=== PATIENT | female | born 1985 | race Caucasian/White ===

== ENCOUNTER 2017-06-08 16:13 | Emergency (ER) | payer OTHER ==
[~2017-06-08] VITALS: Ht 162.6 cm; Wt 167.8 kg
[~2017-06-08 16:13] MED LIST: ADDERALL XR 1010 MG; ALBUTEROL INHAL17 GM IH; AMOXICILLIN875 MG PO; AZITHROMYCIN 2250 MG PO; BACTRIM DS TAB1 EACH PO; CHLORPROMAZINE100 MG; CLONAZEPAM 0.50.5 M1 PO; KEFLEX500 MG PO; LAMICTAL100 MG; LAMICTAL100 MG PO; LORTABELXR PO; NAPROSYN250 MG PO; PAXIL10 MG PO; PROMETHAZINE-D120 ML PO; PROVENTIL17 G1; PROZAC20 MG; PROZAC20 MG PO; PROZAC40 MG; ROBINUL PO; ROBINUL0.2 MG/1 M PO; TOPAMAX 100 MG100 MG; TOPAMAX 25 MG T25 M1; TOPAMAX 25 MG T25 M1 PO; TRAZODONE HCL100 MG; TRAZODONE HCL100 MG PO; VENTOLIN HFA INH8 GM IH; YASMIN 28 TABL1 EACH; YASMIN 28 TABL1 EACH PO; [UNRECOGNIZED DRUG - OTHER] PO; [UNRECOGNIZED DRUG - OTHER] PO
[2017-06-08] MEDS ORDERED: VYVANSE40 MG PO (16:33)
[2017-06-08] MEDS ORDERED: CHLORPROMAZINE50 M2 PO ×2 (16:33→16:34)
[2017-06-08] MEDS ORDERED: REQUIP1 MG PO (16:34)
[2017-06-08] MEDS ORDERED: PROZAC20 MG PO (16:34)
[2017-06-08] MEDS ORDERED: PRAZOSIN HCL2 MG PO (16:35)
[2017-06-08] MEDS ORDERED: ZANAFLEX4 MG PO (16:35)
[2017-06-08] MEDS ORDERED: XARELTO20 MG PO (16:35)
[2017-06-08 18:10] VITALS: BP 148/90
== END 2017-06-08 18:11 | disposition home or self-care (01) ==
LOC: M.ERS 16:13
DX: M25.562 Pain in left knee (principal); F31.9 Bipolar disorder, unspecified; F43.10 Post-traumatic stress disorder, unspecified; F90.9 Attention-deficit hyperactivity disorder, unspecified type; F41.9 Anxiety disorder, unspecified; F17.210 Nicotine dependence, cigarettes, uncomplicated

== ENCOUNTER 2018-02-04 19:20 | Emergency (ER) | payer OTHER ==
[~2018-02-04] VITALS: Ht 162.6 cm; Wt 149.7 kg
[~2018-02-04 19:20] MED LIST changes: +CHLORPROMAZINE50 M2 PO; +PRAZOSIN HCL2 MG PO; +REQUIP1 MG PO; +VYVANSE40 MG PO; +XARELTO20 MG PO; +ZANAFLEX4 MG PO
[2018-02-04 20:43] LABS: ABSOLUTE BASOPHILS 0.1 thou/uL (0.0-0.2); ABSOLUTE EOSINOPHILS 0.1 thou/uL (0.0-0.7); ABSOLUTE LYMPHOCYTES 2.6 thou/uL (0.8-5.3); ABSOLUTE MONOCYTES 0.9 thou/uL (0.0-1.2); ABSOLUTE NEUTROPHILS 8.6 thou/uL (1.6-8.1); BASOPHILS 0.6 %; EOSINOPHILS 0.9 %; HEMATOCRIT 39.8 % (37.0-47.0); HEMOGLOBIN 12.9 gm/dL (12.0-15.0); MCH 25.5 pg (26.0-34.0); MCHC 32.3 g/dL (28.0-37.0); MCV 78.7 fL (80.0-100.0); MONOCYTES 7.2 %; MPV 8.6 fl. (7.2-11.1); NUCLEATED RBCS 0 /100WBC; PLATELET COUNT* 289 thou/uL (150-400); POLYS 70.3 %; RBC 5.06 mil/uL (4.20-5.00); RDW-CV 16.1 % (10.5-14.5); WBC 12.2 thou/uL (4.0-11.0)
[2018-02-04 20:56] LABS: CALCIUM 8.8 mg/dL (8.5-10.1); CREATININE 0.7 mg/dL (0.6-1.3); POTASSIUM 3.6 mmol/L (3.5-5.1)
[2018-02-04 21:00] LABS: ALBUMIN 3.6 g/dL (3.4-5.0); TOTAL BILIRUBIN 0.2 mg/dL (<0.1-1.0); TOTAL PROTEIN 7.4 g/dL (6.4-8.2)
[2018-02-04 22:47] LABS: URINE BILIRUBIN NEGATIVE (Negative); URINE BLOOD NEGATIVE (Negative); URINE CLARITY CLEAR; URINE COLOR YELLOW; URINE GLUCOSE-RANDOM NEGATIVE (Negative); URINE KETONES NEGATIVE (Negative); URINE LEUKOCYTES-REFLEX NEGATIVE (Negative); URINE NITRITE-REFLEX NEGATIVE (Negative); URINE PROTEIN NEGATIVE (Negative); URINE UROBILINOGEN 0.2 E.U./dl (0.2-1.0)
[2018-02-04 22:55] LABS: AMP/METHAMP POSITIVE (Negative); BARBITURATES Negative (Negative); BENZODIAZEPINES Negative (Negative); COCAINE Negative (Negative); METHADONE Negative (Negative); OPIATES Negative (Negative); PCP Negative (Negative); THC Negative (Negative)
[2018-02-05] MEDS ORDERED: PHENERGAN12.5 M2 RECTAL (00:13)
[2018-02-05] MEDS ORDERED: ZOFRAN ODT4 MG PO (00:13)
[2018-02-05] MEDS ORDERED: CARAFATE 1 GM TA1 GM PO (00:13)
[2018-02-05] MEDS ORDERED: HYDROCODONE-ACE15 ML PO (00:14)
[2018-02-05 00:27] VITALS: BP 139/79
--- NOTE | 2018-02-05 16:14 | EKG ---
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 : 1985 Requested By: Maryam Patten Order Number: [id number] MD: Patrick Gant Measurements Intervals [place] Rate: 104 P: 47 IA: 158 QRS: 240 QRSD: 111 T: 21 QT: 364 QTc: 479 Interpretive Statements Sinus tachycardia Left anterior fascicular block Possible right ventricular hypertrophy Borderline prolonged QT interval Compared to ECG 06/10/2008 14:02:34 Left anterior fascicular block now present Right superior axis no longer present Electronically Signed On 02-05-2018 16:13:47 CDT by Patrick Gant [email or web address] <ELECTRONICALLY SIGNED> By: Patrick Gant MD, FACC 02/05/18 1613 36 36 Patrick Gant MD, [facility] /EPI
== END 2018-02-05 00:28 | disposition home or self-care (01) ==
LOC: M.ERS 19:20
PROVIDERS: Personal Emergency Response Attendant
DX: K29.70 Gastritis, unspecified, without bleeding (principal); J45.909 Unspecified asthma, uncomplicated; F17.210 Nicotine dependence, cigarettes, uncomplicated; Z98.84 Bariatric surgery status

== ENCOUNTER 2018-08-14 11:52 | Emergency (ER) | payer OTHER ==
[~2018-08-14] VITALS: Ht 160 cm; Wt 127.0 kg
[~2018-08-14 11:52] MED LIST changes: +CARAFATE 1 GM TA1 GM PO; +HYDROCODONE-ACE15 ML PO; +PHENERGAN12.5 M2 RECTAL; +ZOFRAN ODT4 MG PO
[2018-08-14] MEDS ORDERED: SPIRONOLACTONE25 MG PO (12:03)
[2018-08-14 13:03] LABS: ABSOLUTE BASOPHILS 0.1 thou/uL (0.0-0.2); ABSOLUTE EOSINOPHILS 0.2 thou/uL (0.0-0.7); ABSOLUTE LYMPHOCYTES 2.3 thou/uL (0.8-5.3); ABSOLUTE MONOCYTES 0.7 thou/uL (0.0-1.2); ABSOLUTE NEUTROPHILS 7.5 thou/uL (1.6-8.1); BASOPHILS 0.5 %; EOSINOPHILS 1.8 %; HEMATOCRIT 38.5 % (37.0-47.0); LYMPHOCYTES 21.4 %; MCH 27.2 pg (26.0-34.0); MCHC 33.8 g/dL (28.0-37.0); MCV 80.6 fL (80.0-100.0); MONOCYTES 6.2 %; MPV 8.3 fl. (7.2-11.1); NUCLEATED RBCS 0 /100WBC; PLATELET COUNT* 267 thou/uL (150-400); POLYS 70.1 %; RBC 4.78 mil/uL (4.20-5.00); WBC 10.7 thou/uL (4.0-11.0)
[2018-08-14 13:14] LABS: PROTIME 10.7 Seconds (9.20-11.50)
[2018-08-14 13:21] LABS: ALBUMIN 3.4 g/dL (3.4-5.0); ALKALINE PHOSPHATASE 73 U/L (46-116); ANION GAP 10 mmol/L (7-16); BUN 7 mg/dL (7-18); CALCIUM 8.8 mg/dL (8.5-10.1); CHLORIDE 105 mmol/L (98-107); CO2 26 mmol/L (21-32); CREATININE 0.7 mg/dL (0.6-1.3); GLUCOSE 90 mg/dL (70-99); LIPASE 45 U/L (73-393); POTASSIUM 3.9 mmol/L (3.5-5.1); SGOT 13 U/L (15-37); SGPT 25 U/L (30-65); SODIUM 141 mmol/L (136-145); TOTAL BILIRUBIN 0.4 mg/dL (<0.1-1.0); TOTAL PROTEIN 7.3 g/dL (6.4-8.2); TROPONIN-I LEVEL <0.06 ng/mL (<0.06)
--- NOTE | 2018-08-14 15:57 | EKG ---
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: : 1985 Requested By: Maryam Patten Order Number: [id number] MD: Duane Canas Measurements Intervals [place] Rate: 83 P: 12 HI: 157 QRS: 263 QRSD: 110 T: 31 QT: 405 QTc: 476 Interpretive Statements Sinus rhythm Left anterior fascicular block Possible right ventricular hypertrophy Borderline prolonged QT interval Compared to ECG 02/04/2018 19:37:39 Sinus tachycardia no longer present Electronically Signed On 08-14-2018 15:57:03 CDT by Duane Canas [email or web address] <ELECTRONICALLY SIGNED> By: Duane Canas MD, [facility] 08/14/18 1557 1157 1157 Duane Canas MD, [facility] /EPI
--- NOTE | 2018-08-14 16:04 | 2DMMODE ---
[place] [address] 2 D/M-MODE ECHOCARDIOGRAM Name: ANTHONY ULLOA [id number] Admission: 08/14/18 Attend Phys: Discharge: Date of : 85 Date of Service: 08/14/18 1603 Report #: [id number] THIS REPORT FOR: //name// APPROVED REPORT Study performed: 08/14/2018 14:40:07 EXAM: Comprehensive 2D, Doppler, and color-flow Echocardiogram Patient Location: In-Patient Room #: ER Status: routine BSA: 2.23 HR: 75 bpm BP: 130/59 mmHg Rhythm: NSR Other Information Study Quality: Good Indications Murmur Chest Pain 2D Dimensions IVSd: 9.57 (7-11mm) LVOT Diam: 19.21 (18-24mm) LVDd: 43.41 mm PWd: 9.01 (7-11mm) Ascending Ao: 28.98 (22-36mm) LVDs: 28.15 (25-40mm) Aortic Root: 27.53 mm Volumes Left Atrial Volume (Systole) LA ESV Index: 19.90 mL/m2 Aortic Valve AoV Peak Bar.: 1.81 m/s AO Peak Gr.: 13.09 mmHg LVOT Max P.91 mmHg AO Mean Gr.: 7.32 mmHg LVOT Mean P.81 mmHg LVOT Max V: 1.31 m/s AO V2 VTI: 33.16 cm LVOT Mean V: 0.92 m/s MOOKIE (VTI): 2.21 cm2 LVOT V1 VTI: 25.24 cm Mitral Valve E/A Ratio: 1.39 MV Decel. Time: 242.42 [place] [address] 2 D/M-MODE ECHOCARDIOGRAM Name: ANTHONY ULLOA [facility] [id number] Admission: 08/14/18 Attend Phys: Discharge: Date of : 85 Date of Service: 08/14/18 1603 Report #: [id number] MV E Max Bar.: 1.03 m/s MV PHT: 70.30 ms MVA (PHT): 3.13 cm2 TDI E/Lateral E': 6.87 E/Medial E': 7.36 Medial E' Bar.: 0.14 m/s Lateral E' Bar.: 0.15 m/s Pulmonary Valve PV Peak Bar.: 1.42 m/s PV Peak Gr.: 8.04 mmHg Left Ventricle The left ventricle is normal size. There is normal LV segmental wall motion. There is normal left ventricular wall thickness. Left ventricular systolic function is normal. LVEF is 60-65%. The left ventricular diastolic function is normal. Right Ventricle The right ventricle is normal size. The right ventricular systolic function is normal. Atria The left atrium size is normal. The right atrium size is normal. Aortic Valve The aortic valve is normal in structure. No aortic regurgitation is present. There is no aortic valvular stenosis. Mitral Valve The mitral valve is normal in structure. There is no mitral valve regurgitation noted. No evidence of mitral valve stenosis. Tricuspid Valve The tricuspid valve is normal in structure. Unable to assess PA pressure. Trace tricuspid regurgitation. Pulmonic Valve The pulmonary valve is normal in structure. There is no pulmonic valvular regurgitation. Great Vessels The aortic root is normal in size. IVC is normal in size and collapses >50% [place] [address] 2 D/M-MODE ECHOCARDIOGRAM Name: ANTHONY ULLOA Room: [facility]#: [id number] Admission: 08/14/18 Attend Phys: Discharge: Date of : 85 Date of Service: 08/14/18 1603 Report #: [id number] Pericardium There is no pericardial effusion. <Conclusion> The left ventricle is normal size. There is normal left ventricular wall thickness. Left ventricular systolic function is normal. LVEF is 60-65%. The left ventricular diastolic function is normal. Trace tricuspid regurgitation. IVC is normal in size and collapses >50% with inspiration. <ELECTRONICALLY SIGNED> By: Duane Canas MD, FACC 08/14/18 1603 160 160 Duane Canas MD, FACC /INF
[2018-08-14] MEDS ORDERED: CYCLOBENZAPRINE5 MG PO (16:32)
[2018-08-14] MEDS ORDERED: TORADOL 10 MG T10 MG PO (16:32)
[2018-08-14 17:20] VITALS: BP 121/64
== END 2018-08-14 17:20 | disposition home or self-care (01) ==
LOC: M.ERS 11:52
PROVIDERS: Personal Emergency Response Attendant
DX: R07.89 Other chest pain (principal); F41.9 Anxiety disorder, unspecified; F31.9 Bipolar disorder, unspecified; J45.909 Unspecified asthma, uncomplicated; K58.9 Irritable bowel syndrome, unspecified; F17.210 Nicotine dependence, cigarettes, uncomplicated

== ENCOUNTER 2019-01-11 19:35 | Inpatient (IN) | payer OTHER ==
[~2019-01-11] VITALS: Ht 160 cm; Wt 131.5 kg
--- NOTE | ~2019-01-11 | PROC ---
[address] [address] PROCEDURE REPORT Name: ANTHONY ULLOA Room: [address] IN M.R.#: [id number] Admission: 01/11/19 Attend Phys: Gunner Gavin MD Discharge: 01/14/19 Date of : [birth year] Report #: [id number] THIS REPORT FOR: //name// For GI report, please see the Provation report in Perceptive 7 content. By: [id number] Records Staff SAMUEL /JUAN
[~2019-01-11 19:35] MED LIST changes: +CYCLOBENZAPRINE5 MG PO; +SPIRONOLACTONE25 MG PO; +TORADOL 10 MG T10 MG PO
[2019-01-11 19:39] VITALS: BP 147/79
[2019-01-11] MEDS ORDERED: PRILOSEC10 MG PO (19:46)
[2019-01-11 20:04] LABS: ABSOLUTE BASOPHILS 0.1 thou/uL (0.0-0.2); ABSOLUTE EOSINOPHILS 0.1 thou/uL (0.0-0.7); ABSOLUTE LYMPHOCYTES 1.4 thou/uL (0.8-5.3); ABSOLUTE MONOCYTES 0.6 thou/uL (0.0-1.2); ABSOLUTE NEUTROPHILS 7.4 thou/uL (1.6-8.1); BASOPHILS 0.7 %; EOSINOPHILS 1.2 %; HEMATOCRIT 39.3 % (37.0-47.0); HEMOGLOBIN 13.2 gm/dL (12.0-15.0); LYMPHOCYTES 14.6 %; MCH 27.7 pg (26.0-34.0); MCHC 33.5 g/dL (28.0-37.0); MCV 82.7 fL (80.0-100.0); MONOCYTES 5.8 %; MPV 8.7 fl. (7.2-11.1); NUCLEATED RBCS 0 /100WBC; PLATELET COUNT* 195 thou/uL (150-400); POLYS 77.7 %; RBC 4.75 mil/uL (4.20-5.00); RDW-CV 13.1 % (10.5-14.5); WBC 9.6 thou/uL (4.0-11.0)
[2019-01-11 20:13] LABS: ANION GAP 12 mmol/L (7-16); BUN 8 mg/dL (7-18); CALCIUM 8.3 mg/dL (8.5-10.1); CHLORIDE 103 mmol/L (98-107); CO2 22 mmol/L (21-32); CREATININE 0.9 mg/dL (0.6-1.3); GLUCOSE 136 mg/dL (70-99); POTASSIUM 3.1 mmol/L (3.5-5.1); SODIUM 137 mmol/L (136-145)
[2019-01-11 20:22] LABS: ALBUMIN 3.2 g/dL (3.4-5.0); ALKALINE PHOSPHATASE 70 U/L (46-116); LIPASE 45 U/L (73-393); SGOT 18 U/L (15-37); SGPT 26 U/L (30-65); TOTAL BILIRUBIN 0.3 mg/dL (<0.1-1.0); TROPONIN-I LEVEL <0.06 ng/mL (<0.06)
[2019-01-11 21:11] LABS: URINE BILIRUBIN NEGATIVE (Negative); URINE BLOOD 1+ (Negative); URINE CLARITY CLEAR; URINE COLOR YELLOW; URINE GLUCOSE-RANDOM NEGATIVE (Negative); URINE KETONES NEGATIVE (Negative); URINE LEUKOCYTES-REFLEX 1+ (Negative); URINE NITRITE-REFLEX NEGATIVE (Negative); URINE PROTEIN NEGATIVE (Negative); URINE SPECIFIC GRAVITY 1.015 (1.005-1.030); URINE UROBILINOGEN 0.2 E.U./dl (0.2-1.0)
[2019-01-11 21:18] LABS: CASTS None Seen /LPF (None Seen); CRYSTALS None Seen /LPF (None Seen); MUCUS 0-3 Light strn/LPF (None Seen); SQUAMOUS 0-3 Few /LPF (0-3); URINE RBC 0-2 Rare /HPF (0-2); URINE WBC-REFLEX 6-15 Few /HPF (0-5)
[2019-01-11 22:45] VITALS: BP 132/80
[2019-01-11 22:50] VITALS: BP 112/66
[2019-01-12] MEDS ORDERED: CALCIUM 500 +1 EAC5 PO (00:24)
[2019-01-12] MEDS ORDERED: MULTI VITAMIN1 EACH PO (00:25)
[2019-01-12 04:00] VITALS: BP 98/60
[2019-01-12 07:40] VITALS: BP 105/69
--- NOTE | 2019-01-12 09:55 | EKG ---
[place] [address] ELECTROCARDIOGRAM REPORT Name: ANTHONY ULLOA Room: [address] ADM IN .R.#: [id number] Admission: 01/11/19 Attend Phys: Gunner Gavin MD Discharge: Date of : 85 Report #: [id number] THIS REPORT FOR: //name// 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 <ELECTRONICALLY SIGNED> By: Bradley Mcpherson MD, [facility] 01/12/19954 40 40 Bradley Mcpherson MD, [facility] /EPI
[2019-01-12 12:00] VITALS: BP 100/70
[2019-01-12 15:00] VITALS: BP 97/59
[2019-01-12 20:00] VITALS: BP 119/84
[2019-01-13] VITALS (8 sets, daily range): BP systolic 91–131; BP diastolic 44–82
--- NOTE | 2019-01-13 08:58 | CON ---
[address] [address] CONSULTATION Name: ANTHONY ULLOA Room: [address] IN M.R.#: [id number] Admission: 01/11/19 Attend Phys: Gunner Gavin MD Discharge: Date of : 85 Report #: [id number] THIS REPORT FOR: //name// CC: Gunner Gavin [facility] DATE OF SERVICE: 01/12/2019 REASON FOR CONSULT: Noncardiac chest pain, lower abdominal pain and abnormal CT. HISTORY OF PRESENT ILLNESS: This is a 33-year-old female with history of morbid obesity, who has had undergone gastric bypass surgery in 11/2017. She claims that she has lost 130 pounds since then. She has had a lot of acid reflux and postprandial vomiting since her surgery. She also has had constipation for many years, but prior to admission, she developed severe abdominal pain which was followed by episode of diarrhea. She denies any hematochezia or melena. She was having some chills during this episode. The patient is currently comfortably lying in the bed and complains of some pain in the lower part of abdomen. She has been started on IV antibiotics and has had a CT scan, which revealed evidence of thickening of the colon. PAST MEDICAL HISTORY: Significant for history of gastric bypass surgery in 11/2017, history of seizure, bipolar mood disorder, posttraumatic stress disorder, irritable bowel syndrome, gallbladder disease, status post cholecystectomy, and finally history of PCOS. ALLERGIES: No known drug allergy. MEDICATIONS: Please refer to MAR. SOCIAL HISTORY: The patient recently got an employment at [employer]. She admits to smoking a pack of cigarettes per day and may occasionally have alcoholic beverage. FAMILY HISTORY: Negative for GI malignancy. PHYSICAL EXAMINATION: VITAL SIGNS: Reveals blood pressure of 105/69, respirations 16, pulse 93, temperature 98.4. LUNGS: Clear. CARDIOVASCULAR: Regular. ABDOMEN: Large, soft, tender to palpation in the lower quadrants bilaterally. Bowel sounds are positive. NEUROLOGIC: The patient is alert and oriented x 3[place] [address] CONSULTATION Name: ANTHONY ULLOA Room: [address] IN [facility]#: [id number] Admission: 01/11/19 Attend Phys: Gunner Gavin MD Discharge: Date of : 85 Report #: [id number] neurologic deficit. LABORATORY DATA: Labs reveal sodium of 137, potassium 3.1, BUN is 8, creatinine 0.9, glucose is 136. Liver function tests are all within normal limits. Calcium is 8.3. WBC is 9.6 with hemoglobin of 13.2 and platelets of 195. IMAGING: CT of abdomen and pelvis was obtained on admission. There was right colon wall thickening with some adjacent stranding and edema. There are also some similar changes involving the terminal ileum. There is small amount of free pelvic fluid and evidence of previous gastric bypass surgery. ASSESSMENT AND PLAN: The patient with a history of gastric bypass surgery who has had symptoms of worsening GERD and nausea with occasional vomiting. We will consider upper endoscopy to further evaluate this. She also has abnormal CT suggestive of thickening of the right colon and abdominal pain. I will perform a colonoscopy at the same time. We will continue her on clear liquids and IV fluids plus antibiotics for time being. I will perform her endoscopic evaluations on Monday and make further recommendation based on finding. The patient is agreeable with plan. <ELECTRONICALLY SIGNED> By: Liv Vogt MD 01/13/19 0858 1012 [id number] Vogt MD /nt
[2019-01-14 00:06] VITALS: BP 81/40
[2019-01-14 04:00] VITALS: BP 90/51
[2019-01-14 07:50] VITALS: BP 113/81
[2019-01-14 11:30] VITALS: BP 98/66
[2019-01-14] MEDS ORDERED: CIPRO500 MG PO (11:57)
[2019-01-14] MEDS ORDERED: FLAGYL500 M1 PO (11:59)
[2019-01-14 12:49] VITALS: BP 98/66
[2019-01-14] MEDS ORDERED: MIRALAX17 GM PO (13:31)
[2019-01-14] MEDS ORDERED: REGLAN 5 MG TAB5 MG PO (13:41)
[2019-01-14] MEDS ORDERED: PROTONIX40 M1 PO (13:42)
--- NOTE | 2019-01-16 15:07 | PATH ---
[address] [address] PATHOLOGY RPT PROCEDURE Name: ESTRELLA ULLOA Room: [address] IN M.R.#: [id number] Admission: 01/11/19 Date of : 85 Discharge: 01/14/19 Report #: [id number] Path Case #: [id number] [facility] Accession Number: [id number] . 01 Material submitted: . PART A: anastomosis - BIOPSY GASTROJEJUNAL ANASTOMOTIC SITE= BIOPSY PART B: colon - BIOPSY RIGHT COLON. Modifiers: right PART C: colon - BIOPSY LEFT COLON. Modifiers: left . 01 Clinical history: . None provided . 02 Diagnosis: A. Biopsy gastrojejunal anastomotic site: - Benign small intestinal and gastric types mucosa with nonspecific severe acute inflammation, with abundance of eosinophils, negative for granulomas, Helicobacter pylori organisms, viral inclusions and dysplasia. See comment. . B. Biopsy right colon: - Severe active colitis, negative for granulomas, viral inclusions and dysplasia. . C. Biopsy left colon: - Moderate active colitis, negative for granulomas, viral inclusions and dysplasia. . (See comment) . (SAVANAH:narayan/jani; 01/16/2019) QLM 01/16/[address] [place] [address] . 02 Comment: In the gastrojejunal anastomotic site biopsy (A), the presence of abundant eosinophils in the gastric mucosa suggests a possible allergic response. . The right colon biopsy (B) shows benign colonic mucosa with abundant active cryptitis, crypt abscesses and neutrophils in the lamina propria with prominent crypt atrophy noted in one of the fragments. Active inflammation is less pronounced in the left colon biopsy (C) and there is no definite basal lymphoplasmacytosis or crypt distortion in either to raise a suspicion for Crohn's disease, although this should be considered in the clinical differential. There is no inflammatory pseudomembrane identified nor are definite ischemic features such as hyaline microthrombi, condensation of lamina propria and superficial mucosa necrosis with preservation of deeper aspects identified and the findings [place] [address] PATHOLOGY RPT PROCEDURE Name: ESTRELLA ULLOA Room: [address] DIS IN M.R.#: [id number] Admission: 01/11/19 Date of : 85 Discharge: 01/14/19 Report #: [id number] Path Case #: [id number] Special stain (A): H. pylori immuno. . (SAVANAH:mml/jani; 01/16/2019) . 02 Electronically signed: . Ezequiel Cassidy MD, Pathologist NPI- [id number] . 01 Gross description: . A. The specimen is received in formalin, labeled "JoleneiEstrella, biopsy gastrojejunal anastomotic site" and consists of 2 fragments of hercules tissue measuring 0.2 x 0.2 cm and 0.9 x 0.3 x 0.1 cm which are entirely submitted in A1. . B. The specimen is received in formalin, labeled "Arni, Estrella, biopsy right colon" and consists of multiple fragments of hercules tissue measuring 1.0 x 0.5 x 0.2 cm in aggregate which are entirely submitted in B1. . C. The specimen is received in formalin, labeled "Arni, Estrella, biopsy left colon" and consists of multiple fragments of hercules tissue measuring 1.2 x 0.7 x 0.2 cm in aggregate which are entirely submitted in C1. (SDY; 01/14/2019) SYU/SYU 01/14/2019 1141 Local . 02 Microscopic: . . . 02 Pathologist provided ICD-10: K29.00, K52.9, K62.89 . 02 CPT . 675967, 219795, 585841, H46832 Specimen Comment: A courtesy copy of this report has been sent to Specimen Comment: [phone], . Specimen Comment: Report sent to / DR DESAI Performed at: 01 [facility] [address] [place] [address] [address], [place], [place] [id number] MD Saleem Jarquin MD Phone: [phone] Performed at: [address] [id number] MD Ezequiel Cassidy MD Phone: [phone]
== END 2019-01-14 14:15 | disposition home or self-care (01) | DRG 603 ==
LOC: M.ERS 19:35 → M.TBA-ER 22:05 → M.2W 22:05
PROVIDERS: Nurse Practitioner Family; ADMIT Internal Medicine
DX: L02.211 Cutaneous abscess of abdominal wall (principal); N39.0 Urinary tract infection, site not specified; E46 Unspecified protein-calorie malnutrition; Z68.43 Body mass index [BMI] 50.0-59.9, adult; K52.9 Noninfective gastroenteritis and colitis, unspecified; K21.9 Gastro-esophageal reflux disease without esophagitis; F41.9 Anxiety disorder, unspecified; F31.9 Bipolar disorder, unspecified; K64.8 Other hemorrhoids; K63.89 Other specified diseases of intestine; K59.00 Constipation, unspecified; F43.10 Post-traumatic stress disorder, unspecified; E66.01 Morbid (severe) obesity due to excess calories; I45.10 Unspecified right bundle-branch block; J44.9 Chronic obstructive pulmonary disease, unspecified; F17.210 Nicotine dependence, cigarettes, uncomplicated; Z90.49 Acquired absence of other specified parts of digestive tract; Z98.84 Bariatric surgery status; Z98.0 Intestinal bypass and anastomosis status

== ENCOUNTER 2019-04-01 20:47 | Emergency (ER) | payer OTHER ==
[~2019-04-01] VITALS: Ht 162.6 cm; Wt 117.9 kg
[~2019-04-01 20:47] MED LIST changes: +CALCIUM 500 +1 EAC5 PO; +CIPRO500 MG PO; +FLAGYL500 M1 PO; +MIRALAX17 GM PO; +MULTI VITAMIN1 EACH PO; +PRILOSEC10 MG PO; +PROTONIX40 M1 PO; +REGLAN 5 MG TAB5 MG PO
[2019-04-01 21:43] LABS: ABSOLUTE BASOPHILS 0.1 thou/uL (0.0-0.2); ABSOLUTE EOSINOPHILS 0.1 thou/uL (0.0-0.7); ABSOLUTE LYMPHOCYTES 3.3 thou/uL (0.8-5.3); ABSOLUTE NEUTROPHILS 8.1 thou/uL (1.6-8.1); BASOPHILS 0.6 %; HEMATOCRIT 42.1 % (37.0-47.0); MCH 27.7 pg (26.0-34.0); MCHC 33.4 g/dL (28.0-37.0); MONOCYTES 7.9 %; MPV 7.9 fl. (7.2-11.1); NUCLEATED RBCS 0 /100WBC; PLATELET COUNT* 298 thou/uL (150-400); POLYS 64.5 %; RBC 5.07 mil/uL (4.20-5.00); WBC 12.6 thou/uL (4.0-11.0)
[2019-04-01 21:51] LABS: CALCIUM 8.8 mg/dL (8.5-10.1); CREATININE 0.6 mg/dL (0.6-1.3); POTASSIUM 4.3 mmol/L (3.5-5.1)
[2019-04-01 21:52] LABS: URINE BILIRUBIN NEGATIVE (Negative); URINE BLOOD NEGATIVE (Negative); URINE CLARITY CLEAR; URINE COLOR YELLOW; URINE GLUCOSE-RANDOM NEGATIVE (Negative); URINE KETONES NEGATIVE (Negative); URINE LEUKOCYTES-REFLEX NEGATIVE (Negative); URINE NITRITE-REFLEX NEGATIVE (Negative); URINE PROTEIN NEGATIVE (Negative); URINE UROBILINOGEN 0.2 E.U./dl (0.2-1.0)
[2019-04-01 21:55] LABS: ALBUMIN 3.8 g/dL (3.4-5.0); TOTAL BILIRUBIN 0.3 mg/dL (<0.1-1.0); TOTAL PROTEIN 7.8 g/dL (6.4-8.2)
[2019-04-01] MEDS ORDERED: TRINATE TABLET1 EACH PO (23:22)
[2019-04-01] MEDS ORDERED: ONDANSETRON HCL4 M2 PO (23:22)
[2019-04-01] MEDS ORDERED: FAMOTIDINE 20 M20 MG PO (23:24)
[2019-04-01 23:45] VITALS: BP 179/94
== END 2019-04-01 23:47 | disposition home or self-care (01) ==
LOC: M.ERS 20:47
PROVIDERS: Nurse Practitioner Family
DX: O26.891 Other specified pregnancy related conditions, first trimester (principal); R11.0 Nausea; R12 Heartburn; F31.9 Bipolar disorder, unspecified; F41.9 Anxiety disorder, unspecified; K58.9 Irritable bowel syndrome, unspecified; F17.210 Nicotine dependence, cigarettes, uncomplicated; Z90.49 Acquired absence of other specified parts of digestive tract; Z98.84 Bariatric surgery status; Z3A.01 Less than 8 weeks gestation of pregnancy

== ENCOUNTER 2019-04-10 19:34 | Emergency (ER) | payer OTHER ==
[~2019-04-10] VITALS: Ht 162.6 cm; Wt 115.7 kg
[~2019-04-10 19:34] MED LIST changes: +FAMOTIDINE 20 M20 MG PO; +ONDANSETRON HCL4 M2 PO; +TRINATE TABLET1 EACH PO
[2019-04-10 20:09] LABS: URINE BILIRUBIN NEGATIVE (Negative); URINE BLOOD NEGATIVE (Negative); URINE COLOR YELLOW; URINE GLUCOSE-RANDOM NEGATIVE (Negative); URINE KETONES NEGATIVE (Negative); URINE LEUKOCYTES-REFLEX NEGATIVE (Negative); URINE NITRITE-REFLEX NEGATIVE (Negative); URINE PROTEIN NEGATIVE (Negative); URINE SPECIFIC GRAVITY >= 1.030 (1.005-1.030); URINE UROBILINOGEN 0.2 E.U./dl (0.2-1.0)
[2019-04-10 20:10] LABS: URINE CLARITY SL HAZY
[2019-04-10 20:15] LABS: MUCUS 4-6 Moderate strn/LPF (None Seen); SQUAMOUS >10 Many /LPF (0-3)
[2019-04-10 20:16] LABS: CASTS None Seen /LPF (None Seen)
[2019-04-10 20:17] LABS: AMP/METHAMP Negative (Negative); BARBITURATES Negative (Negative); BENZODIAZEPINES Negative (Negative); COCAINE Negative (Negative); CRYSTALS None Seen /LPF (None Seen); METHADONE Negative (Negative); OPIATES Negative (Negative); PCP Negative (Negative); THC Negative (Negative); URINE RBC None Seen /HPF (0-2); URINE WBC-REFLEX 0-5 Rare /HPF (0-5)
[2019-04-10 20:25] LABS: ABSOLUTE BASOPHILS 0.1 thou/uL (0.0-0.2); ABSOLUTE EOSINOPHILS 0.1 thou/uL (0.0-0.7); ABSOLUTE LYMPHOCYTES 2.6 thou/uL (0.8-5.3); ABSOLUTE MONOCYTES 0.7 thou/uL (0.0-1.2); ABSOLUTE NEUTROPHILS 7.7 thou/uL (1.6-8.1); BASOPHILS 0.5 %; EOSINOPHILS 0.8 %; HEMATOCRIT 39.7 % (37.0-47.0); HEMOGLOBIN 13.5 gm/dL (12.0-15.0); LYMPHOCYTES 23.2 %; MCH 27.9 pg (26.0-34.0); MONOCYTES 6.6 %; MPV 8.7 fl. (7.2-11.1); NUCLEATED RBCS 0 /100WBC; PLATELET COUNT* 250 thou/uL (150-400); POLYS 68.9 %; RBC 4.84 mil/uL (4.20-5.00); WBC 11.2 thou/uL (4.0-11.0)
[2019-04-10 20:32] LABS: CALCIUM 9.1 mg/dL (8.5-10.1); CREATININE 0.6 mg/dL (0.6-1.3)
[2019-04-10 20:36] LABS: ALBUMIN 3.5 g/dL (3.4-5.0); TOTAL BILIRUBIN 0.3 mg/dL (<0.1-1.0); TOTAL PROTEIN 7.4 g/dL (6.4-8.2)
[2019-04-10] MEDS ORDERED: PROMS25 WY RECTAL (20:55)
[2019-04-10] MEDS ORDERED: PHENERGAN 25 MG25 M1 PO (20:55)
[2019-04-10 21:27] VITALS: BP 131/85
== END 2019-04-10 21:28 | disposition home or self-care (01) ==
LOC: M.ERS 19:34
PROVIDERS: Personal Emergency Response Attendant
DX: O21.0 Mild hyperemesis gravidarum (principal); O99.341 Other mental disorders complicating pregnancy, first trimester; O99.611 Diseases of the digestive system complicating pregnancy, first trimester; O99.331 Smoking (tobacco) complicating pregnancy, first trimester; Z3A.01 Less than 8 weeks gestation of pregnancy; Z79.899 Other long term (current) drug therapy

== ENCOUNTER → 2020-01-08 | Outpatient (CLI) | payer OTHER ==
[~2020-01-08] MED LIST changes: +MAGNESIUM250 M1 PO; +MAXALT MLT ODT10 M1 PO; +PHENERGAN 25 MG25 M1 PO; +PROMS25 WY RECTAL; +PROTONIX 20 MG20 M1 PO; +SERTRALINE HCL100 MG PO; +TOPAMAX50 MG PO; +TYLENOL325 M1 PO; +XANAX 0.5 MG0.5 M1 PO
== END ==
LOC: M.LAB 09:39
PROVIDERS: ATTEND Internal Medicine Gastroenterology
DX: Z01.812 Encounter for preprocedural laboratory examination (principal); Z20.828 Contact with and (suspected) exposure to other viral communicable diseases

== ENCOUNTER → 2020-01-14 | Day surgery (SDC) | payer OTHER ==
--- NOTE | ~2020-01-14 | PROC ---
[address] [address] PROCEDURE REPORT Name: ANTHONY ULLOA Room: [facility] M.R.#: [id number] Admission: 01/14/20 Attend Phys: Liv Vogt MD Discharge: Date of : 85 Report #: [id number] THIS REPORT FOR: //name// cc: Fran Blanc Chad W. DO ~ THIS REPORT FOR: //name// For GI report, please see the Provation report in Perceptive 7 content. By: [id number] Records Staff SAMUEL /JUAN
[2020-01-14 09:31] LABS: HEMATOCRIT 39.9 % (37.0-47.0); HEMOGLOBIN 13.4 gm/dL (12.0-15.0)
--- NOTE | 2020-01-20 15:12 | PATH ---
[address] [address] PATHOLOGY RPT PROCEDURE Name: ESTRELLA ULLOA Room: [facility] Bartolome#: [id number] Admission: 01/14/20 Date of : [birth year] Discharge: Report #: [id number] Path Case #: [id number] [facility] Accession Number: [id number] . 01 Material submitted: . PART A: stomach - BIOPSY ANASTOMOTIC ULCER PART B: sigmoid colon - SIGMOID POLYP . 01 Clinical history: . NAUSEA, VOMITING, UPPER ABD PAIN, NSAID INTERMEDIATE USE, CHRONIC CONSTIPATION, MELANOTIC STOOLS . 02 Diagnosis: A. Biopsy anastomotic ulcer: - Benign small intestinal mucosa with minimal non-specific active inflammation, negative for granulomas, viral inclusions and dysplasia. . B. Sigmoid polyp: - Hyperplastic polyp. (SAVANAH/db; 01/20/2020) LBQ 01/20/2020 1010 Local . 02 Electronically signed: . Ezequiel Cassidy MD, Pathologist NPI- [id number] . 01 Gross description: . A. The specimen is received in formalin, labeled "Luis De La Rosa, biopsy anastomotic ulcer" and consists of 2 fragments of pink-hercules tissue measuring 0.3 x 0.2 cm and 0.4 x 0.3 cm which are entirely submitted in A1. . B. The specimen is received in formalin, labeled "Estrella Ulloa, sigmoid polyp" and consists of a fragment of hercules tissue measuring 0.5 x 0.3 cm which is entirely submitted in B1. (SDY; 01/15/2020) SYU/SYU 01/15/2020 1134 Local . 02 Pathologist provided ICD-10: K52.9, K63.5 . 02 CPT . 957071, 169621 Specimen Comment: A courtesy copy of this report has been sent to [phone] Specimen Comment: [phone] Specimen Comment: Report sent to / DR MCCARTHY Performed at: 01 [place] [address] PATHOLOGY RPT PROCEDURE Name: ESTRELLA ULLOA Room: [facility] M.R.#: [id number] Admission: 01/14/20 Date of : 85 Discharge: Report #: [id number] Path Case #: [id number] [address], [place], [place] [id number] MD Saleem Jarquin MD Phone: [phone] Performed at: 02 [facility] [address], [place], [place] [id number] MD Ezequiel Cassidy MD Phone: [phone]
== END | disposition home or self-care (01) ==
LOC: M.SUR 05:10
PROVIDERS: ATTEND Internal Medicine Gastroenterology
DX: R19.4 Change in bowel habit (principal); R19.5 Other fecal abnormalities; K52.9 Noninfective gastroenteritis and colitis, unspecified; K63.5 Polyp of colon; K64.8 Other hemorrhoids; K64.4 Residual hemorrhoidal skin tags; K44.9 Diaphragmatic hernia without obstruction or gangrene; R11.0 Nausea; J45.909 Unspecified asthma, uncomplicated; K21.9 Gastro-esophageal reflux disease without esophagitis; F31.9 Bipolar disorder, unspecified; F41.9 Anxiety disorder, unspecified; F17.210 Nicotine dependence, cigarettes, uncomplicated; Z98.0 Intestinal bypass and anastomosis status; Z98.890 Other specified postprocedural states; Z79.899 Other long term (current) drug therapy; Z90.49 Acquired absence of other specified parts of digestive tract

== ENCOUNTER 2020-03-09 00:23 | Emergency (ER) | payer OTHER ==
[~2020-03-09] VITALS: Ht 162.6 cm; Wt 99.8 kg
[2020-03-09] MEDS ORDERED: NEURONTIN100 MG PO (00:38)
[2020-03-09 01:00] LABS: ABSOLUTE BASOPHILS 0.1 thou/uL (0.0-0.2); ABSOLUTE EOSINOPHILS 0.1 thou/uL (0.0-0.7); ABSOLUTE LYMPHOCYTES 3.6 thou/uL (0.8-5.3); ABSOLUTE MONOCYTES 0.6 thou/uL (0.0-1.2); ABSOLUTE NEUTROPHILS 4.6 thou/uL (1.6-8.1); BASOPHILS 1.1 %; EOSINOPHILS 1.3 %; HEMATOCRIT 37.4 % (37.0-47.0); HEMOGLOBIN 12.1 gm/dL (12.0-15.0); LYMPHOCYTES 39.5 %; MCH 25.3 pg (26.0-34.0); MCHC 32.4 g/dL (28.0-37.0); MCV 78.3 fL (80.0-100.0); MONOCYTES 7.2 %; MPV 8.1 fl. (7.2-11.1); NUCLEATED RBCS 0 /100WBC; PLATELET COUNT* 284 thou/uL (150-400); POLYS 50.9 %; RBC 4.78 mil/uL (4.20-5.00); RDW-CV 14.9 % (10.5-14.5)
[2020-03-09 01:02] LABS: AMP/METHAMP Negative (Negative); BARBITURATES Negative (Negative); BENZODIAZEPINES Negative (Negative); COCAINE Negative (Negative); METHADONE Negative (Negative); OPIATES Negative (Negative); PCP Negative (Negative); THC Negative (Negative)
[2020-03-09 01:03] LABS: URINE BILIRUBIN NEGATIVE (Negative); URINE BLOOD NEGATIVE (Negative); URINE CLARITY CLEAR; URINE COLOR YELLOW; URINE GLUCOSE-RANDOM NEGATIVE (Negative); URINE KETONES NEGATIVE (Negative); URINE LEUKOCYTES-REFLEX NEGATIVE (Negative); URINE NITRITE-REFLEX NEGATIVE (Negative); URINE PROTEIN NEGATIVE (Negative); URINE UROBILINOGEN 0.2 E.U./dl (0.2-1.0)
[2020-03-09 01:10] LABS: CALCIUM 9.1 mg/dL (8.5-10.1); CREATININE 0.8 mg/dL (0.6-1.3); POTASSIUM 3.3 mmol/L (3.5-5.1)
[2020-03-09 01:14] LABS: ALBUMIN 3.7 g/dL (3.4-5.0); TOTAL BILIRUBIN 0.2 mg/dL (<0.1-1.0)
[2020-03-09 01:40] LABS: ALCOHOL < 10 mg/dL (<10); SALICYLATE 4.3 mg/dL (2.8-20.0)
[2020-03-09 01:41] LABS: ACETAMINOPHEN < 2 ug/mL (10-30)
[2020-03-09 09:39] VITALS: BP 123/72
== END 2020-03-09 09:39 ==
LOC: M.ERS 00:23
PROVIDERS: Emergency Medicine Emergency Medical Services
DX: F32.9 Major depressive disorder, single episode, unspecified (principal); R45.851 Suicidal ideations; Z20.828 Contact with and (suspected) exposure to other viral communicable diseases; K58.9 Irritable bowel syndrome, unspecified; F41.9 Anxiety disorder, unspecified; F17.210 Nicotine dependence, cigarettes, uncomplicated; Z88.8 Allergy status to other drugs, medicaments and biological substances; Z90.49 Acquired absence of other specified parts of digestive tract